=== PATIENT | male | born 2000 | race Caucasian/White ===

== ENCOUNTER 2024-01-18 17:55 | Emergency (ER) | payer MEDICAID ==
[~2024-01-18] VITALS: Ht 170.2 cm; Wt 66.0 kg
[2024-01-18 18:10] VITALS: O2SAT 99
[2024-01-18] MEDS ORDERED: IBUP-2029 MT (21:17)
[2024-01-18] MEDS ORDERED: BO1 TP (21:17)
[2024-01-18] MEDS: TETANUS, DIPHTHERIA, PERTUSSIS VAC/PF 0.5ML (>10YR OLD) IM ONE (21:54)
[2024-01-18] MEDS: LIDOCAINE HCL/PF 1% 10 MG/ML 5ML VIAL INFIL ONE (21:55)
[2024-01-18] MEDS: BACITRACIN ZINC OINT UDPKT TOP ONE (21:55)
[2024-01-18] MEDS: IBUPROFEN 600MG TABLET PO ONE (21:55)
[2024-01-18 22:01] VITALS: BP 138/68; PULSE 90; RESP 18; TEMP 37.00296; O2SAT 99
== END 2024-01-18 22:02 | disposition home or self-care (01) ==
LOC: ER 17:55
DX: S61.411A Laceration without foreign body of right hand, initial encounter (principal); X58.XXXA Exposure to other specified factors, initial encounter; Y93.89 Activity, other specified; Y92.89 Other specified places as the place of occurrence of the external cause; Y99.8 Other external cause status
CPT/HCPCS: 90715; 12001; 90471; 99283; J3490; Z7610 ×2

== ENCOUNTER 2024-01-20 17:17 | Emergency (ER) | payer MEDICAID ==
[~2024-01-20] VITALS: Ht 167.6 cm; Wt 59.0 kg
[~2024-01-20 17:17] MED LIST: BO1 TP; IBUP-2029 MT
[2024-01-20 17:23] VITALS: O2SAT 100
[2024-01-20] MEDS ORDERED: CEPH500C2 MT (18:51)
[2024-01-20 19:02] VITALS: BP 126/74; PULSE 64; RESP 16; TEMP 36.94740; O2SAT 99
== END 2024-01-20 19:04 | disposition home or self-care (01) ==
LOC: ER 17:17
DX: S61.411D Laceration without foreign body of right hand, subsequent encounter (principal); Z48.00 Encounter for change or removal of nonsurgical wound dressing; X58.XXXD Exposure to other specified factors, subsequent encounter
CPT/HCPCS: 99283

== ENCOUNTER 2024-01-26 08:01 | Emergency (ER) | payer MEDICAID ==
[~2024-01-26] VITALS: Ht 170.2 cm; Wt 57.0 kg
[~2024-01-26 08:01] MED LIST changes: +CEPH500C2 MT
[2024-01-26 08:14] VITALS: O2SAT 99
[2024-01-26 09:22] VITALS: BP 128/67; PULSE 90; RESP 18; TEMP 36.55848; O2SAT 99
== END 2024-01-26 09:00 | disposition home or self-care (01) ==
LOC: ER 08:01
DX: S61.411D Laceration without foreign body of right hand, subsequent encounter (principal); Z48.00 Encounter for change or removal of nonsurgical wound dressing; X58.XXXA Exposure to other specified factors, initial encounter
CPT/HCPCS: 99281